=== PATIENT | male | born 2000 | race Caucasian/White ===

== ENCOUNTER 2020-01-16 08:17 | Outpatient (CLI) | payer BC | END 2020-01-16 23:59 | disposition home or self-care (01) | LOC: LAB 08:17 | PROVIDERS: ATTEND Orthopaedic Surgery Sports Medicine | DX: Z01.812 Encounter for preprocedural laboratory examination (principal); Z11.59 Encounter for screening for other viral diseases | CPT/HCPCS: U0003-CS ==

== ENCOUNTER 2020-01-20 10:55 | Day surgery (SDC) | payer BC ==
[2020-01-20] MEDS ORDERED: ONDANSETRON 4 MG/2 ML VIAL IV ONE (10:56)
[2020-01-20] MEDS ORDERED: KETOROLAC TROMETHAMINE 30 MG INJ IM ONE (10:56)
[2020-01-20] MEDS ORDERED: SEVOFLURANE 250 ML BOTTLE IH ONE (10:56)
[2020-01-20] MEDS ORDERED: LIDOCAINE-MPF 2% 5 ML VIAL IJ ONE (10:56)
[2020-01-20] MEDS ORDERED: CEFAZOLIN 1 G VIAL IM ONE (10:56)
[2020-01-20] MEDS ORDERED: PROPOFOL 200 MG/20 ML BOTTLE IV ONE (10:56)
[2020-01-20] MEDS ORDERED: BUPIVACAINE PF 0.5% 30 ML VIAL IV ONE (10:56)
[2020-01-20] MEDS ORDERED: DEXAMETHASONE SOD PHOSPHATE 4 MG INJ IV ONE (10:56)
[2020-01-20] MEDS ORDERED: IV LACTATED RINGERS SOLUTION 1,000 ML BAG IV ONE (10:56)
[2020-01-20 11:39] LABS: BASOPHILS # (AUTO) 0.1 K/uL (0.0-8.0); BASOPHILS % (AUTO) 1.1 % (0.0-2.0); EOSINOPHILS # (AUTO) 0.2 K/uL (0.0-0.7); EOSINOPHILS % (AUTO) 2.5 % (0.0-7.0); HEMATOCRIT 44.7 % (36.7-47.1); HEMOGLOBIN 15.1 g/dL (12.5-16.3); LYMPHOCYTES # (AUTO) 1.3 K/uL (20.0-40.0); LYMPHOCYTES % (AUTO) 17.2 % (20.5-51.5); MEAN CORPUSCULAR HEMOGLOBIN 30.4 uug (23.8-33.4); MEAN CORPUSCULAR HGB CONC 34 g/dL (32.5-36.3); MEAN CORPUSCULAR VOLUME 90.2 fL (73.0-96.2); MONOCYTES # (AUTO) 0.5 K/uL (2.0-10.0); MONOCYTES % (AUTO) 6.7 % (0.0-11.0); NEUTROPHILS # (AUTO) 5.7 K/uL (1.8-8.9); NEUTROPHILS % (AUTO) 72.5 % (38.5-71.5); PLATELET COUNT (AUTO) 227 K/uL (152-348); RED BLOOD CELL COUNT(AUTO) 4.95 MIL/uL (4.06-5.63); WHITE BLOOD COUNT (AUTO) 7.8 K/uL (3.6-10.2)
[2020-01-20 11:48] LABS: BILIRUBIN,TOTAL 0.8 mg/dL (0.2-1.0); CREATININE 1.1 mg/dL (0.6-1.3); TOTAL PROTEIN, SERUM 7.7 g/dL (6.4-8.2)
[2020-01-20 11:51] LABS: *BILIRUBIN,URIN NEGATIVE (NEGATIVE); *COLOR,URINE YELLOW (YELLOW); *KETONES,URINE NEGATIVE (NEGATIVE); *UROBILINOGEN,URINE 0.2 E.U./dl (NORMAL); LEUKOCYTE ESTERASE ,URINE NEGATIVE (NEGATIVE); NITRITE, URINE NEGATIVE (NEGATIVE); PH,URINE 7.5 (5.0-8.0); UGLUCOSE NEGATIVE (NEGATIVE)
[2020-01-20 12:01] LABS: *BLOOD, URINE TRACE (NEGATIVE); *CLARITY,URINE SLIGHTLY HAZY (CLEAR)
[2020-01-20 12:34] LABS: BACTERIA,URINE NONE SEEN /HPF (NONE SEEN); RBC,URINE 0-3 /HPF (0-3); SQUAMOUS EPITHELIAL CELL,UR FEW /HPF (NONE SEEN); URINE AMORPHOUS PHOSPHATES FEW /HPF; WBC,URINE NONE SEEN /HPF (0-3)
[2020-01-20] MEDS ORDERED: BUPIVACAINE 0.25% 30 ML VIAL ONE (12:41)
[2020-01-20] MEDS ORDERED: VANCOMYCIN 1000 MG VIAL ONE (12:41)
[2020-01-20] MEDS ORDERED: BUPIVACAINE/EPI PF 0.25% 30 ML VIAL ONE (12:42)
[2020-01-20] MEDS ORDERED: HYDROMORPHONE 2 MG/1 ML DISP.SYRIN ONE (12:56)
[2020-01-20] MEDS ORDERED: MIDAZOLAM HCL 2 MG/2 ML VIAL ONE (12:56)
[2020-01-20] MEDS ORDERED: HYDROCODONE/APAP 10-325 MG TABLET ONE (16:40)
== END 2020-01-20 17:30 | disposition home or self-care (01) ==
LOC: DS 10:55
PROVIDERS: ATTEND Orthopaedic Surgery Sports Medicine
DX: S83.512A Sprain of anterior cruciate ligament of left knee, initial encounter (principal); Z79.899 Other long term (current) drug therapy; Z88.1 Allergy status to other antibiotic agents; Z88.8 Allergy status to other drugs, medicaments and biological substances; Z98.890 Other specified postprocedural states; Z72.89 Other problems related to lifestyle; X58.XXXA Exposure to other specified factors, initial encounter; Y93.89 Activity, other specified; Y92.89 Other specified places as the place of occurrence of the external cause; Y99.8 Other external cause status
CPT/HCPCS: 29888; 36415; 80053; 81000; 81001; 85025; 85730; 87070; 87075; 97116; 97161; C1713 ×2; C1776; J0690; J1100; J1170; J1885; J2250; J2405; J3490 ×3; J7120 ×2; A4649; A4663; J3370